=== PATIENT | female | born 1965 | race Caucasian/White ===

== ENCOUNTER 2016-08-24 14:56 | Emergency (ER) | payer OTHER ==
[~2016-08-24 14:56] MED LIST: ALPRAZOLAM PO; AMOXICILLIN500 M1 PO; ASPIRIN; BACTRIM DS TABL1 TA1 PO; BACTRIM DS TABL1 TAB PO; DALMANE30 MG PO; DIAZEPAM PO; FLONASE16 GM; HYDROCODON-ACE1 EAC7 PO; HYDROCODON-ACE1 EAC9 PO; IBUPROFEN PO; KEFLEX PO; KETOPROFEN PO; LIPITOR; LORTAB 10/500 T1 TAB PO; NITROGYLCERIN; OUT OF MEDS; PAXIL PO; PEGASUS IM; PEGASYS SUBQ; PERCOCET PO; PERCOCET5/325 PO; PRILOSEC; REBETOL200 MG PO; SEPTRA DS PO; SODIUM CHLORIDE; SYNTHROID PO; TESSALON200 MG PO; VICODIN; VICODIN 5/500 T1 TAB PO; ZITHROMAX PO; ZYRTEC10 M2 PO; ZYVOX PO; [UNRECOGNIZED DRUG - REMARK]
== END 2016-08-24 15:31 | disposition home or self-care (01) ==
LOC: CED 14:56
DX: R21 Rash and other nonspecific skin eruption (principal); I11.9 Hypertensive heart disease without heart failure; Z86.14 Personal history of Methicillin resistant Staphylococcus aureus infection; Z86.19 Personal history of other infectious and parasitic diseases; Z88.1 Allergy status to other antibiotic agents; Z88.5 Allergy status to narcotic agent; Z91.041 Radiographic dye allergy status
CPT/HCPCS: 99282

== ENCOUNTER 2016-11-12 22:57 | Emergency (ER) | payer OTHER | END 2016-11-13 01:45 | disposition left against medical advice (07) | LOC: CED 22:57 | DX: Z53.21 Procedure and treatment not carried out due to patient leaving prior to being seen by health care provider (principal) ==

== ENCOUNTER 2016-11-27 22:56 | Emergency (ER) | payer OTHER ==
--- NOTE | ~2016-11-27 | CT2 ---
[facility] A Service of [facility] RADIOLOGY TEXT RESULTS PATIENT: ZEKE HAY LOCATION: [facility] : 63 UNIT #: [id number] AGE: [address]: Facundo Rodgers DO SEX: F ORDER DR: [id number] [place] [id number] [facility]. [place], [place] [address] [id number] E MR#: [id number] Acc #: [id number] NAME: ZEKE HAY : 1965 SEX: F STUDY DATE/TIME: 11/28/2016 2:58 UNIT: [facility] ROOM: STUDY DESCRIPTION: CT Abd and Pelv W Cont Attending Physician: Facundo Rodgers D.O. Ordering Physician: Facundo Rodgers D.O. Primary Care Physician: Harini Salter M.D. MEDICAL IMAGING REPORT This report is preliminary unless electronic signature is present EXAM CT abdomen and pelvis with contrast INDICATIONS Generalized abdominal pain, nausea and vomiting today. PROCEDURE Contrast-enhanced CT of the abdomen and pelvis. COMPARISON 08/01/[address] exam was performed with one or more of the following radiation dose reduction techniques: automatic exposure control, adjustment of mA and/or kV according to patient size, and iterative reconstruction. FINDINGS Abdomen with contrast: Included lung bases are clear. Liver, spleen, kidneys, adrenal glands and pancreas unremarkable. Previous cholecystectomy. The appendix is normal. Bowel loops are nondilated. Pelvis with contrast: No pelvic mass or fluid. No aggressive appearing bone lesion. IMPRESSION 1. No acute findings. 2. Normal appendix. Dictated by... Joel Anthony M.D. [facility] A Service of [facility] RADIOLOGY TEXT RESULTS PATIENT: ZEKE HAY LOCATION: [facility] : 63 UNIT #: [id number] AGE: [address]: Facundo Rodgers DO SEX: F ORDER DR: THIS IS AN ELECTRONICALLY VERIFIED REPORT Joel Anthony M.D. at 12/01/2016 7:18 AM Jacek TD: 11/28/2016 09:48 JOB #: [id number] MEDICAL IMAGING REPORT Page 1 of 1 COPY
[2016-11-27 23:53] LABS: URINE SOURCE CLEAN CATCH
[2016-11-27 23:57] LABS: URINE APPEARANCE CLOUDY; URINE BILIRUBIN NEG (NEG); URINE BLOOD 3+ (NEG); URINE COLOR ORANGE; URINE GLUCOSE NEG (NEG); URINE KETONE TRACE (NEG); URINE LEUKOCYTE ESTERASE TRACE (NEG); URINE NITRATE NEG (NEG); URINE PH 5.5 (5-8); URINE PROTEIN 1+ (NEG); URINE SPECIFIC GRAVITY 1.022 (1.003-1.035)
[2016-11-28 00:01] LABS: CULTURE INDICATED? YES; URBCS1 AUWI INNUM /[HPF] (0-2); URINE BACTERIA AUWI 1+ (NEGATIVE); URINE SQUAMOUS EPITHELIAL CELL FEW /[HPF]
[2016-11-28 00:50] LABS: BASOPHIL# 0.1 X10e3 (0-0.3); BASOPHIL% 0.6 % (0-2.5); EOSINOPHIL# 0.2 X10e3 (0-0.7); HEMATOCRIT 42.8 % (35.0-45.0); HEMOGLOBIN 13.9 gm/dL (12.0-16.0); LYMPHOCYTE# 1.8 X10e3 (1.0-3.5); LYMPHOCYTE% 15.3 % (17.0-45.0); MEAN CELL VOLUME 84.1 FL (83-96); MEAN CORPUSCULAR HEMOGLOBIN 27.2 PG (28-34); MEAN CORPUSCULAR HGB CONC 32.4 g/dL (30-36); MEAN PLATELET VOLUME 8.7 FL (6.5-11.5); MONOCYTE# 0.6 X10e3 (0-1.0); MONOCYTE% 5.1 % (3.0-12.0); NEUTROPHIL# 9.1 X10e3 (1.5-7.1); PLATELET COUNT 245 X10e3 (140-420); RED BLOOD COUNT 5.09 X10e (3.90-5.30); RED CELL DISTRIBUTION WIDTH 13.7 % (11.0-15.5); WHITE BLOOD COUNT 11.9 X10e3 (4.0-10.5)
[2016-11-28 00:52] LABS: DIFF IND NO
[2016-11-28 01:20] LABS: ALBUMIN SERUM 4.1 g/dL (3.5-5.0); BILIRUBIN, DIRECT 0.1 mg/dL (0.0-0.2); BILIRUBIN,INDIRECT 0.5 mg/dL (0.0-0.9); BILIRUBIN,TOTAL 0.6 mg/dL (0.2-2.0); BUN/CREATININE RATIO 12.5; CALCIUM SERUM 9.4 mg/dL (8.4-10.2); CREATININE SERUM 0.8 mg/dL (0.6-1.4); GLOM FILT RATE Estimated 84.8 mL/min (>60); PROTEIN TOTAL SERUM 7.2 g/dL (6.0-8.3)
== END 2016-11-28 04:28 | disposition home or self-care (01) ==
LOC: CED 22:56
DX: N39.0 Urinary tract infection, site not specified (principal); I10 Essential (primary) hypertension; Z90.49 Acquired absence of other specified parts of digestive tract; Z88.5 Allergy status to narcotic agent; Z91.040 Latex allergy status; Z88.8 Allergy status to other drugs, medicaments and biological substances
CPT/HCPCS: 74177; 80048; 80076; 81003; 82150; 83690; 84484; 84703; 85025; 87086; 96361; 96372; 96374; 96375; 99284; J0500; J0696; J1170; J1885; J2270; J2405; Q9967

== ENCOUNTER 2016-12-08 00:46 | Emergency (ER) | payer OTHER ==
[2016-12-08] MEDS ORDERED: CIPRO (22:28)
[2016-12-08] MEDS ORDERED: KEFLEX250 M1 (22:28)
[2016-12-08] MEDS ORDERED: NORVASC10 MG (22:28)
[2016-12-08] MEDS ORDERED: KLONOPIN1 MG (22:29)
== END 2016-12-08 05:10 | disposition home or self-care (01) ==
LOC: CED 00:46
DX: L03.116 Cellulitis of left lower limb (principal); D64.9 Anemia, unspecified; B19.20 Unspecified viral hepatitis C without hepatic coma; Z98.51 Tubal ligation status; Z90.49 Acquired absence of other specified parts of digestive tract; Z91.040 Latex allergy status; Z88.5 Allergy status to narcotic agent; Z88.1 Allergy status to other antibiotic agents
CPT/HCPCS: 99283

== ENCOUNTER 2016-12-08 21:20 | Emergency (ER) | payer OTHER ==
[2016-12-08] MEDS ORDERED: NORVASC10 MG (22:28)
[2016-12-08] MEDS ORDERED: CIPRO (22:28)
[2016-12-08] MEDS ORDERED: KEFLEX250 M1 (22:28)
[2016-12-08] MEDS ORDERED: KLONOPIN1 MG (22:29)
[2016-12-09 01:05] LABS: BASOPHIL# 0.1 X10e3 (0-0.3); BASOPHIL% 1.1 % (0-2.5); EOSINOPHIL# 0.3 X10e3 (0-0.7); EOSINOPHIL% 4.8 % (0.0-7.0); HEMATOCRIT 39.1 % (35.0-45.0); HEMOGLOBIN 12.9 gm/dL (12.0-16.0); LYMPHOCYTE# 1.8 X10e3 (1.0-3.5); MEAN CELL VOLUME 84.7 FL (83-96); MEAN CORPUSCULAR HEMOGLOBIN 27.9 PG (28-34); MEAN CORPUSCULAR HGB CONC 32.9 g/dL (30-36); MEAN PLATELET VOLUME 8.8 FL (6.5-11.5); MONOCYTE# 0.5 X10e3 (0-1.0); MONOCYTE% 7.5 % (3.0-12.0); NEUTROPHIL# 3.9 X10e3 (1.5-7.1); NEUTROPHIL% 59.6 % (40-75); PLATELET COUNT 232 X10e3 (140-420); RED BLOOD COUNT 4.62 X10e (3.90-5.30); WHITE BLOOD COUNT 6.6 X10e3 (4.0-10.5)
[2016-12-09 01:14] LABS: DIFF IND NO
[2016-12-09 01:26] LABS: GLOM FILT RATE Estimated 64.8 mL/min (>60); POTASSIUM 3.4 mmol/L (3.5-5.1)
== END 2016-12-09 02:48 | disposition home or self-care (01) ==
LOC: SED 21:20 → CED 23:00 → SED 23:00
PROVIDERS: Nurse Practitioner Family
DX: M25.571 Pain in right ankle and joints of right foot (principal); M25.572 Pain in left ankle and joints of left foot; M79.661 Pain in right lower leg; R79.1 Abnormal coagulation profile; M79.662 Pain in left lower leg; I10 Essential (primary) hypertension; Z90.49 Acquired absence of other specified parts of digestive tract; Z88.1 Allergy status to other antibiotic agents; Z88.5 Allergy status to narcotic agent; Z91.040 Latex allergy status
CPT/HCPCS: 80048; 85025; 85379; 86140; 96372; 99283; J1650

== ENCOUNTER → 2016-12-09 | Outpatient (CLI) | payer OTHER ==
[~2016-12-09] MED LIST changes: +CIPRO; +KEFLEX250 M1; +KLONOPIN1 MG; +NORVASC10 MG; +PHENERGAN25 M1
--- NOTE | ~2016-12-09 | US84 ---
[id number] [address] [id number] O MR#: [id number] Acc #: [id number] NAME: ZEKE HAY : 1965 SEX: F STUDY DATE/TIME: 12/09/2016 8:41 UNIT: SNIV ROOM: STUDY DESCRIPTION: US LE Veins Complete Parviz Stdy Attending Physician: Harini Salter M.D. Referring Physician: Harini Salter M.D. Ordering Physician: Harini Salter M.D. Primary Care Physician: Harini Salter M.D. MEDICAL IMAGING REPORT This report is preliminary unless electronic signature is present. EXAM Bilateral lower extremity venous duplex Doppler INDICATIONS Bilateral lower extremity swelling and edema for 5 days. Pain in the left lower extremity for 5 days. COMPARISON None available. TECHNIQUE Venous ultrasound examination of both lower extremities was performed using grayscale, spectral Doppler and color flow Doppler imaging. FINDINGS The examination is negative. There is no evidence of deep venous thrombus from the groin to the lower calf bilaterally. Visualized greater saphenous veins are also patent. IMPRESSION Negative examination. No evidence of lower extremity deep venous thrombosis. Dictated by... Rosendo Dietrich M.D. THIS IS AN ELECTRONICALLY VERIFIED REPORT Rosendo Dietrich M.D. at 12/09/2016 1:46 PM Earline TD: 12/09/2016 11:57 JOB #: [id number] MEDICAL IMAGING REPORT Page 1 of 1
== END | disposition home or self-care (01) ==
LOC: SNIV 08:12
DX: M79.605 Pain in left leg (principal); M79.89 Other specified soft tissue disorders
CPT/HCPCS: 93970

== ENCOUNTER → 2016-12-29 | Outpatient (CLI) | payer OTHER ==
--- NOTE | ~2016-12-29 | CR126 ---
[facility] A Service of [facility] & [facility] RADIOLOGY TEXT RESULTS PATIENT: ZEKE HAY LOCATION: [facility] : 63 UNIT #: [id number] AGE: [address]: Iris Arreola MD SEX: F ORDER DR: [id number] [facility] [address] [place], [place] [address] [id number] O MR#: [id number] Acc #: [id number] NAME: ZEKE HAY : 1965 SEX: F STUDY DATE/TIME: 12/29/2016 15:41 UNIT: [facility] ROOM: STUDY DESCRIPTION: CR Foot Complete Min 3 View Lt Attending Physician: Iris Arreola M.D. Referring Physician: Iris Arreola M.D. Ordering Physician: Iris Arreola M.D. Primary Care Physician: Harini Salter M.D. MEDICAL IMAGING REPORT This report is preliminary unless electronic signature is present EXAM Left foot, 3 views, 12/29/2016. HISTORY Left foot and ankle pain and swelling beginning 2 1/2 weeks ago. Left foot and ankle were hit by a grocery cart. FINDINGS The tarsal, metatarsal, and phalangeal elements are all anatomically normal in position and alignment. There are no articular defects. No fractures or radiopaque foreign bodies in the soft tissues are apparent. IMPRESSION Normal foot. Dictated by... Eric Lockhart M.D. THIS IS AN ELECTRONICALLY VERIFIED REPORT Eric Lockhart M.D. at 12/31/2016 6:19 AM WAYLON/tosha TD: 12/30/2016 15:23 JOB #: [id number] MEDICAL IMAGING REPORT Page 1 of 1 COPY
--- NOTE | ~2016-12-29 | CR20 ---
[facility] A Service of [facility] & [facility] RADIOLOGY TEXT RESULTS PATIENT: ZEKE HAY LOCATION: [facility] : 63 UNIT #: [id number] AGE: [address]: Iris Arreola MD SEX: F ORDER DR: [id number] [facility] [address] [place], [place] [address] [id number] O MR#: [id number] Acc #: [id number] NAME: ZEKE HAY : 1965 SEX: F STUDY DATE/TIME: 12/29/2016 15:41 UNIT: [facility] ROOM: STUDY DESCRIPTION: CR Ankle Min 3 Views Lt Attending Physician: Iris Arreola M.D. Referring Physician: Iris Arreola M.D. Ordering Physician: Iris Arreola M.D. Primary Care Physician: Harini Salter M.D. MEDICAL IMAGING REPORT This report is preliminary unless electronic signature is present EXAM Left ankle, 3 views; 12/29/2016. HISTORY Left ankle pain and swelling status post sprain 2-1/2 weeks ago. Ankle and foot hit by a grocery cart. FINDINGS Three views of the left ankle demonstrate no fracture. The bones are normally mineralized and the ankle mortise is intact. There is slight soft tissue swelling overlying the lateral malleolus. IMPRESSION Minimal soft tissue swelling overlying the lateral malleolus. No evidence of fracture. Dictated by... Eric Lockhart M.D. THIS IS AN ELECTRONICALLY VERIFIED REPORT Eric Lockhart M.D. at 12/31/2016 6:19 AM WAYLON/kellee TD: 12/30/2016 15:23 JOB #: [id number] MEDICAL IMAGING REPORT Page 1 of 1 COPY
== END | disposition home or self-care (01) ==
LOC: CRAD 15:14
DX: S93.402A Sprain of unspecified ligament of left ankle, initial encounter (principal); S93.602A Unspecified sprain of left foot, initial encounter
CPT/HCPCS: 73610; 73630

== ENCOUNTER 2017-01-18 13:55 | Emergency (ER) | payer OTHER ==
[~2017-01-18] VITALS: Ht 157.5 cm; Wt 74.8 kg
--- NOTE | ~2017-01-18 | EKG ---
PATIENT: ZEKE HAY UNIT #: [id number] Ventricular Rate: 99 BPM Atrial Rate: 99 BPM P-R Interval: 136 ms QRS Duration: 70 ms Q-T Interval: 318 ms QTC Calculation(Bezet): 408 ms P [place]: 48 degrees Calculated R [place]: 9 degrees Calculated T [place]: 39 degrees Diagnosis Line: Normal sinus rhythm Diagnosis Line: Normal ECG Diagnosis Line: No previous ECGs available Diagnosis Line: Confirmed by DWAIN MAGALLANES MD ([id number]) on Diagnosis Line: 01/18/2017 11:17:32 PM INTERPRETING MD: OSNA ANTONIO
[~2017-01-18 13:55] MED LIST changes: -PHENERGAN25 M1
[2017-01-18] MEDS ORDERED: PHENERGAN25 M1 (15:30)
== END 2017-01-18 15:15 | disposition left against medical advice (07) ==
LOC: CED 13:55
DX: Z53.21 Procedure and treatment not carried out due to patient leaving prior to being seen by health care provider (principal)
CPT/HCPCS: 93005

== ENCOUNTER 2017-01-18 15:16 | Emergency (ER) | payer OTHER ==
[~2017-01-18] VITALS: Ht 157.5 cm; Wt 74.8 kg
--- NOTE | ~2017-01-18 | CT2 ---
[facility]. [facility] A Service of [facility] & [facility] RADIOLOGY TEXT RESULTS PATIENT: ZEKE HAY LOCATION: SED : 63 UNIT #: [id number] AGE: [address]: Elham Dunn MD SEX: F ORDER DR: [id number] [address] [address] [id number] E MR#: [id number] Acc #: [id number] NAME: ZEKE HAY : 1965 SEX: F STUDY DATE/TIME: 01/18/2017 18:17 UNIT: SED ROOM: STUDY DESCRIPTION: CT Abd and Pelv W Cont Attending Physician: Elham Dunn M.D. Ordering Physician: Elham Dunn M.D. Primary Care Physician: Harini Salter M.D. MEDICAL IMAGING REPORT This report is preliminary unless electronic signature is present. EXAM CT abdomen and pelvis with contrast dated 01/18/[address] abdomen and pelvis with contrast dated 11/28/2016. HISTORY Nausea, vomiting, and diarrhea since yesterday with abdominal pain. Microhematuria. FINDINGS CT of the abdomen and pelvis were obtained with IV contrast in the axial plane followed by sagittal and coronal reformats. This CT examination was performed with one or more of the following radiation dose reduction techniques: automatic exposure control, adjustment of mA and/or kV according to patient size, and iterative reconstruction. LOWER CHEST: Minimal dependent atelectatic changes in the right lung base. Left lung is well aerated. Heart is of normal size. Degenerative changes are in the spine. ABDOMEN: Status post cholecystectomy. There is mild thickening noted asymmetrically in the right colon with suspicious minimal pericolonic fat stranding. No significant lymphadenopathy, drainable abscess, obstruction or free air is seen. Well defined appendix is difficult to visualize. Ileocecal junction and the terminal ileum appear to be grossly unremarkable. Small bowel loops do not demonstrate any significant abnormality. There is no free fluid, free air intraperitoneally. Liver, spleen, adrenal glands and kidneys do not demonstrate any significant abnormality. Status post cholecystectomy. PELVIS: Heterogeneously enhancing prominent uterus is seen. Urinary STS. [facility] A Service of [facility] & [facility] RADIOLOGY TEXT RESULTS PATIENT: ZEKE HAY LOCATION: [facility] : 63 UNIT #: [id number] AGE: [address]: MonaElham Manju ANTONIO SEX: F ORDER DR: bladder and bowel loops do not demonstrate any significant abnormality. Mild degenerative changes are in the spine particularly in the lower lumbar spine. IMPRESSION 1. There appears to be wall thickening in the right colon with suspicious minimal pericolonic fat stranding. It involves the cecum also. Correlate with possible colitis. The terminal ileum appears to be intact making inflammatory disease like Crohn's disease lower in the differential consideration. Well defined appendix is not seen nor is there any distended tubular structure, appendicolith or abscess adjacent to the tip of the cecum. 2. Status post cholecystectomy. 3. Degenerative changes are in the lumbar spine, relatively worse in the lower lumbar spine. It involves the discs and the facet joints with severe right L4-5 facet hypertrophic changes followed by right L3-4. 4. Heterogeneously enhancing uterus is noted. It appears to be prominent for patient's age but it could be related to hormonal intake. Correlate clinically. No distinct mass is seen. Dictated by... Yamilex Arellano M.D. THIS IS AN ELECTRONICALLY VERIFIED REPORT Yamilex Arellano M.D. at 01/19/2017 7:33 PM CPR/jocelyne TD: 01/19/2017 07:54 JOB #: [id number] MEDICAL IMAGING REPORT Page 1 of 1
[2017-01-18] MEDS ORDERED: PHENERGAN25 M1 (15:30)
[2017-01-18 16:01] LABS: URINE SOURCE CLEAN CATCH
[2017-01-18 16:03] LABS: MICRO INDICATED? YES; URINE APPEARANCE CLEAR; URINE BILIRUBIN NEG (NEG); URINE BLOOD 1+ (NEG); URINE COLOR YELLOW; URINE GLUCOSE NEG (NORM); URINE KETONE NEG (NEG); URINE LEUKOCYTE ESTERASE NEG (NEG); URINE NITRATE NEG (NEG); URINE PROTEIN TRACE (NEG); URINE UROBILINOGEN 0.2 MG/DL (NORM)
[2017-01-18 16:13] LABS: CULTURE INDICATED? NO; URINE BACTERIA NEG (NEG); URINE MUCUS PRESENT; URINE SQUAMOUS EPITHELIAL CELL FEW /[HPF]; URINE WBC 0-2 /[HPF] (0-5)
[2017-01-18 16:21] LABS: BASOPHIL% 0.5 % (0-2.5); HEMATOCRIT 42.2 % (35.0-45.0); HEMOGLOBIN 14.4 gm/dL (12.0-16.0); LYMPHOCYTE# 0.7 X10e3 (1.0-3.5); LYMPHOCYTE% 7.9 % (17.0-45.0); MEAN CELL VOLUME 83.2 FL (83-96); MEAN CORPUSCULAR HEMOGLOBIN 28.4 PG (28-34); MEAN CORPUSCULAR HGB CONC 34.2 g/dL (30-36); MEAN PLATELET VOLUME 8.6 FL (6.5-11.5); MONOCYTE# 0.5 X10e3 (0-1.0); MONOCYTE% 5.8 % (3.0-12.0); NEUTROPHIL# 7.5 X10e3 (1.5-7.1); NEUTROPHIL% 85.8 % (40-75); PLATELET COUNT 225 X10e3 (140-420); RED BLOOD COUNT 5.07 X10e (3.90-5.30); RED CELL DISTRIBUTION WIDTH 13.8 % (11.0-15.5); WHITE BLOOD COUNT 8.8 X10e3 (4.0-10.5)
[2017-01-18 16:23] LABS: DIFF IND NO
[2017-01-18 16:49] LABS: ALBUMIN SERUM 4.1 g/dL (3.5-5.0); BILIRUBIN, DIRECT 0.1 mg/dL (0.0-0.2); BILIRUBIN,INDIRECT 0.3 mg/dL (0.0-0.9); BILIRUBIN,TOTAL 0.4 mg/dL (0.2-2.0); CALCIUM SERUM 8.2 mg/dL (8.4-10.2); GLOM FILT RATE Estimated 64.8 mL/min (>60); PROTEIN TOTAL SERUM 7.4 g/dL (6.0-8.3)
== END 2017-01-18 20:37 | disposition home or self-care (01) ==
LOC: SED 15:16
PROVIDERS: Student in an Organized Health Care Education/Training Program
DX: K52.9 Noninfective gastroenteritis and colitis, unspecified (principal); I25.10 Atherosclerotic heart disease of native coronary artery without angina pectoris; I10 Essential (primary) hypertension; Z90.49 Acquired absence of other specified parts of digestive tract; Z88.5 Allergy status to narcotic agent; Z88.1 Allergy status to other antibiotic agents; Z91.040 Latex allergy status
CPT/HCPCS: 36415; 74177; 80048; 80076; 81003; 82150; 83690; 85025; 96361; 96365; 96375; 99284; C9113; J1885; J2405; J2543; Q9967

== ENCOUNTER 2017-02-06 13:09 | Emergency (ER) | payer OTHER ==
[~2017-02-06 13:09] MED LIST changes: +PHENERGAN25 M1
== END 2017-02-06 14:59 | disposition home or self-care (01) ==
LOC: SED 13:09
DX: L29.9 Pruritus, unspecified (principal); I10 Essential (primary) hypertension; K21.9 Gastro-esophageal reflux disease without esophagitis; Z90.49 Acquired absence of other specified parts of digestive tract; Z98.890 Other specified postprocedural states; Z88.1 Allergy status to other antibiotic agents; Z91.040 Latex allergy status
CPT/HCPCS: 99282